=== PATIENT | male | born 1940 ===

== ENCOUNTER 2024-04-05 13:11 | Outpatient (CLI) | payer MEDICARE | END 2024-04-05 13:12 | disposition home or self-care (01) | LOC: CSHWCC 13:11 | PROVIDERS: ATTEND Nurse Practitioner Family | DX: E11.621 Type 2 diabetes mellitus with foot ulcer (principal); L97.521 Non-pressure chronic ulcer of other part of left foot limited to breakdown of skin; I96 Gangrene, not elsewhere classified | CPT/HCPCS: 99215; G0463 ==

== ENCOUNTER 2024-04-14 09:02 | Outpatient (CLI) | payer MEDICARE | END 2024-04-14 09:03 | disposition home or self-care (01) | LOC: CSHWCC 09:02 | PROVIDERS: ATTEND Nurse Practitioner Family | DX: T81.329D Deep disruption or dehiscence of operation wound, unspecified, subsequent encounter (principal); E11.621 Type 2 diabetes mellitus with foot ulcer; L97.526 Non-pressure chronic ulcer of other part of left foot with bone involvement without evidence of necrosis | CPT/HCPCS: 11044; G0463; 99212 ==

== ENCOUNTER 2024-04-21 08:23 | Outpatient (CLI) | payer MEDICARE | END 2024-04-21 08:24 | disposition home or self-care (01) | LOC: CSHWCC 08:23 | PROVIDERS: ATTEND Nurse Practitioner Family | DX: L97.526 Non-pressure chronic ulcer of other part of left foot with bone involvement without evidence of necrosis (principal); E11.621 Type 2 diabetes mellitus with foot ulcer; L89.893 Pressure ulcer of other site, stage 3; T81.329D Deep disruption or dehiscence of operation wound, unspecified, subsequent encounter | CPT/HCPCS: 11044; G0463; 99212 ==

== ENCOUNTER 2024-04-28 12:31 | Outpatient (CLI) | payer MEDICARE | END 2024-04-28 12:32 | disposition home or self-care (01) | LOC: CSHWCC 12:31 | PROVIDERS: ATTEND Nurse Practitioner Family | DX: L89.893 Pressure ulcer of other site, stage 3 (principal); E11.621 Type 2 diabetes mellitus with foot ulcer; L97.526 Non-pressure chronic ulcer of other part of left foot with bone involvement without evidence of necrosis; T81.329D Deep disruption or dehiscence of operation wound, unspecified, subsequent encounter | CPT/HCPCS: 11042 ==

== ENCOUNTER 2024-05-05 14:52 | Outpatient (CLI) | payer MEDICARE | END 2024-05-05 14:53 | disposition home or self-care (01) | LOC: CSHWCC 14:52 | PROVIDERS: ATTEND Nurse Practitioner Family | DX: L89.893 Pressure ulcer of other site, stage 3 (principal); T81.329D Deep disruption or dehiscence of operation wound, unspecified, subsequent encounter; E11.621 Type 2 diabetes mellitus with foot ulcer; L97.526 Non-pressure chronic ulcer of other part of left foot with bone involvement without evidence of necrosis | CPT/HCPCS: 11042 ==

== ENCOUNTER 2024-05-20 15:15 | Outpatient (CLI) | payer MEDICARE | END 2024-05-20 15:16 | disposition home or self-care (01) | LOC: CSHWCC 15:15 | PROVIDERS: ATTEND Nurse Practitioner Family | DX: L89.893 Pressure ulcer of other site, stage 3 (principal); T81.329D Deep disruption or dehiscence of operation wound, unspecified, subsequent encounter; E11.621 Type 2 diabetes mellitus with foot ulcer; L97.526 Non-pressure chronic ulcer of other part of left foot with bone involvement without evidence of necrosis | CPT/HCPCS: 11042 ==

== ENCOUNTER 2024-05-20 15:27 | Outpatient (CLI) | payer MEDICARE | END 2024-05-20 15:28 | disposition home or self-care (01) | LOC: CSHRAD 15:27 | PROVIDERS: ATTEND Nurse Practitioner Family | DX: L97.526 Non-pressure chronic ulcer of other part of left foot with bone involvement without evidence of necrosis (principal); Z89.422 Acquired absence of other left toe(s); I73.9 Peripheral vascular disease, unspecified ==

== ENCOUNTER 2024-06-02 14:44 | Outpatient (CLI) | payer MEDICARE | END 2024-06-02 14:45 | disposition home or self-care (01) | LOC: CSHWCC 14:44 | PROVIDERS: ATTEND Nurse Practitioner Family | DX: L89.893 Pressure ulcer of other site, stage 3 (principal); T81.329D Deep disruption or dehiscence of operation wound, unspecified, subsequent encounter; E11.621 Type 2 diabetes mellitus with foot ulcer; L97.526 Non-pressure chronic ulcer of other part of left foot with bone involvement without evidence of necrosis | CPT/HCPCS: 11042; 99213; G0463 ==

== ENCOUNTER 2024-06-09 15:11 | Outpatient (CLI) | payer MEDICARE, OTHER | END 2024-06-09 15:12 | disposition home or self-care (01) | LOC: CSHWCC 15:11 | PROVIDERS: ATTEND Nurse Practitioner Family | DX: T81.329D Deep disruption or dehiscence of operation wound, unspecified, subsequent encounter (principal); L89.893 Pressure ulcer of other site, stage 3; E11.621 Type 2 diabetes mellitus with foot ulcer; L97.526 Non-pressure chronic ulcer of other part of left foot with bone involvement without evidence of necrosis | CPT/HCPCS: 99214; G0463 ==